=== PATIENT | male | born 1990 | race Caucasian/White ===

== ENCOUNTER 2018-09-21 19:55 | Emergency (ER) | payer BC ==
[~2018-09-21] VITALS: Ht 182.9 cm; Wt 91.9 kg
[~2018-09-21 19:55] MED LIST: IBUP-1542 PO
[2018-09-21 19:58] VITALS: BP 120/58; PULSE 62; RESP 16; Ht 182.9 cm; Wt 91.9 kg
[2018-09-21] MEDS ORDERED: IBUPROFEN 600 MG TAB PO ONE (21:30)
--- NOTE | 2018-09-22 02:28 | ERD ---
ER Documentation Chief Complaint Chief Complaint R hand pain after punching wall, no deformitiy noted HPI 28-year-old male presents to the emergency department complaining of right hand pain after punching a wall earlier today. He states he slammed the medial aspect of his right hand against a wall because he was angry. He reports pain which is rated 3/10 severity and worse with movement. He tried Tylenol with some relief. He denies any other symptoms or injuries at this time. ROS All systems reviewed and are negative except as per history of present illness. Medications Home Meds Active Scripts Ibuprofen* (Motrin*) 600 Mg Tab, 600 MG PO Q6, #30 TAB Prov:DUNCAN YBARRA PA-C 09/21/18 Allergies Allergies: Coded Allergies: No Known Allergy (Unverified , 09/21/18) PMhx/Soc Medical and Surgical Hx: pt denies Medical Hx, pt denies Surgical Hx Hx Alcohol Use: No Hx Substance Use: No Hx Tobacco Use: No Smoking Status: Never smoker FmHx Family History: No diabetes Physical Exam Vitals Vital Signs Date Temp Pulse Resp B/P (MAP) Pulse Ox O2 O2 Flow FiO2 Time Delivery Rate 09/21/18 99.1 62 16 120/58 98 19:58 (78) Physical Exam Const: No acute distress Head: Atraumatic Eyes: Normal Conjunctiva ENT: Normal External Ears, Nose and Mouth. Neck: Full range of motion. No meningismus. Resp: No respiratory distress. Skin: No petechiae or rashes Back: No midline or flank tenderness Ext: Tenderness palpation of the ulnar aspect of the right wrist with mild soft tissue swelling. There is no snuffbox tenderness. There is no tenderness palpation of the hand. Patient is neurovascularly intact the right upper extremity. Neur: Awake and alert Psych: Normal Mood and Affect Results 24 hrs Current Medications Medications Dose Sig/Guerrero Start Time Status Last (Trade) Ordered Route PRN Stop Time Admin Dose Reason Admin Ibuprofen 600 mg ONCE ONCE 09/21/18 DC 09/21/18 (Motrin) PO 21:30 09/21/18 21:34 21:[address] [address] Radiology Main Line: [phone] DIAGNOSTIC IMAGING REPORT Patient: MILY BACA : 1990 Age: 28 Sex: M MR #: [id number] DOS: 09/21/18 0000 Ordering MD: DUNCAN YBARRA PA-C Location: [facility] Room/Bed: PROCEDURE: XR Right Hand Complete, 3 or More Views CLINICAL INDICATION: Trauma. TECHNIQUE: Frontal, lateral and oblique views of the right hand. COMPARISON: None FINDINGS: BONES/JOINTS: No acute fracture demonstrated. No dislocation. SOFT TISSUES: Unremarkable. No radiopaque foreign body. IMPRESSION: No acute fracture demonstrated. RPTAT: [facility] Rupa Canales, Physician Geothermal System Installer Date Time Electronically viewed and signed by Rupa Canales, Physician Geothermal System Installer on 09/21/2018 22:23 RmC/ CC: DUNCAN YBARRA PA-C [phone] [place] [address] Radiology Main Line: [phone] DIAGNOSTIC IMAGING REPORT Patient: MILY BACA : 1990 Age: 28 Sex: M MR #: [id number] DOS: 09/21/18 0000 Ordering MD: DUNCAN YBARRA PA-C Location: [facility] Room/Bed: PROCEDURE: Right wrist x-ray CLINICAL INDICATION: Trauma TECHNIQUE: AP, lateral and oblique views of the wrist were obtained. COMPARISON: None FINDINGS: There is normal mineralization. No acute fracture or dislocation is seen. There are no significant degenerative changes. There is no significant soft tissue swelling. IMPRESSION: Normal x-ray of the right wrist. .Moisés Lemos MD, Date Time Electronically viewed and signed by .Moisés Lemos MD, on 09/21/2018 22:23 .A/ CC: DUNCAN YBARRA PA-C [phone] Procedures/MDM 28-year-old male presenting to the emergency department with signs and symptoms most consistent with contusion of the right wrist. X-ray of the right hand and right wrist showed no significant acute abnormalities. No evidence to suggest fracture, compartment syndrome, ligamental or tendon rupture, or other emergent process. Patient will be discharged home in stable condition and was placed in a Velcro wrist splint of the right upper extremity for comfort. Splint Assessment: Neurovascularly intact post splint placement with good fit. No evidence of life-threatening pathology at time of discharge. Pt/family in agreement with discharge plan/diagnosis. Pt/family advised to return immediately with any new or worsening symptoms. Follow-up with primary care physician within the next 1-2 days. Departure Diagnosis: Primary Impression: Contusion of right wrist Encounter type: initial encounter Qualified Codes: S60.211A - Contusion of right wrist, initial encounter Condition: Fair Patient Instructions: Wrist Splint, Velcro Referrals: [facility] YOU HAVE RECEIVED A MEDICAL SCREENING EXAM AND THE RESULTS INDICATE THAT YOU DO NOT HAVE A CONDITION THAT REQUIRES URGENT TREATMENT IN THE EMERGENCY DEPARTMENT. FURTHER EVALUATION AND TREATMENT OF YOUR CONDITION CAN WAIT UNTIL YOU ARE SEEN IN YOUR DOCTORS OFFICE WITHIN THE NEXT 1-2 DAYS. IT IS YOUR RESPONSIBILITY TO MAKE AN APPOINTMENT FOR FOLOW-UP CARE. IF YOU HAVE A PRIMARY DOCTOR --you should call your primary doctor and schedule an appointment IF YOU DO NOT HAVE A PRIMARY DOCTOR YOU CAN CALL OUR PHYSICIAN REFERRAL HOTLINE AT IF YOU CAN NOT AFFORD TO SEE A PHYSICIAN YOU CAN CHOSE FROM THE FOLLOWING [facility] [address] [facility]. [facility] [address] [facility]. [facility] [address] [facility] [facility] [address] [facility]. [facility] [address] [facility]. [facility]. [address] Additional Instructions: Call your primary care doctor TOMORROW for an appointment during the next 1-2 days.See the doctor sooner or return here if your condition worsens before your appointment time. DUNCAN YBARRA PA-C Sep 22, 2018 02:28
== END 2018-09-21 22:50 | disposition home or self-care (01) ==
LOC: FTE 19:55
DX: S60.211A Contusion of right wrist, initial encounter (principal); W22.01XA Walked into wall, initial encounter; Y92.9 Unspecified place or not applicable